=== PATIENT | male | born 1990 | race Caucasian/White ===

== ENCOUNTER 2019-06-05 11:02 | Emergency (ER) | payer OTHER ==
[~2019-06-05] VITALS: Ht 180.3 cm; Wt 72.6 kg
[~2019-06-05 11:02] MED LIST: ATIVAN1 MG PO; BACTRIM DS TAB1 EACH PO; BACTROBAN CREAM30 G1 TOP; COMPAZINE10 M1 PO; COMPAZINE10 MG PO; FLEXERIL PO; IBUPROFEN 600600 M1 PO; IBUPROFEN 800800 MG PO; NOHOMEMEDICATIONS; NORCO 5-325 TA1 EACH PO; PRILOSEC 10MG C10 M1 PO; TYLENOL W/CODEI1 TA2 PO
[2019-06-05 11:26] LABS: ABSOLUTE NEUTROPHILS 5.5 thou/uL (1.4-8.2); BASOPHILS 0.7 % (0.0-2.0); EOSINOPHILS 1.9 % (0.0-3.0); HEMATOCRIT 43.2 % (42.0-52.0); HEMOGLOBIN 14.5 gm/dL (14.0-18.0); LYMPHOCYTES 25.6 % (24.0-44.0); MCH 32.3 pg (26.0-34.0); MCHC 33.6 g/dL (28.0-37.0); MCV 96.1 fL (80.0-100.0); MONOCYTES 5.5 % (1.0-8.0); PLATELET COUNT 257 thou/uL (150-400); POLYS 66.3 % (36.0-66.0); RDW 13.6 % (10.5-14.5); WBC 8.3 thou/uL (4.0-11.0)
[2019-06-05 11:37] LABS: CALCIUM 8.7 mg/dL (8.5-10.1); CREATININE 0.8 mg/dL (0.7-1.3); POTASSIUM 3.8 mmol/L (3.5-5.1)
[2019-06-05 11:42] LABS: ALBUMIN 3.7 g/dL (3.4-5.0); TOTAL BILIRUBIN 0.4 mg/dL (<0.1-1.0); TOTAL PROTEIN 6.7 g/dL (6.4-8.2)
[2019-06-05 12:56] LABS: URINE BILIRUBIN NEGATIVE (Negative); URINE BLOOD NEGATIVE (Negative); URINE CLARITY CLEAR; URINE COLOR YELLOW; URINE GLUCOSE-RANDOM* NEGATIVE (Negative); URINE KETONES NEGATIVE (Negative); URINE LEUKOCYTES-REFLEX NEGATIVE (Negative); URINE NITRITE-REFLEX NEGATIVE (Negative); URINE PROTEIN (DIPSTICK) NEGATIVE (Negative); URINE SPECIFIC GRAVITY <= 1.005 (1.005-1.035); URINE UROBILINOGEN 0.2 E.U./dl (0.2-1.0)
[2019-06-05] MEDS ORDERED: LEVSIN0.125 MG PO (14:26)
[2019-06-05] MEDS ORDERED: PHENERGAN 25 MG25 M1 PO (14:26)
[2019-06-05 14:58] VITALS: BP 110/75
== END 2019-06-05 15:06 | disposition home or self-care (01) ==
LOC: ER 11:02
PROVIDERS: Physician Assistant
DX: R19.7 Diarrhea, unspecified (principal); R11.2 Nausea with vomiting, unspecified; R10.84 Generalized abdominal pain; F17.210 Nicotine dependence, cigarettes, uncomplicated; Z88.0 Allergy status to penicillin

== ENCOUNTER 2021-01-03 15:59 | Emergency (ER) | payer OTHER ==
[~2021-01-03] VITALS: Ht 180.3 cm; Wt 65.8 kg
[~2021-01-03 15:59] MED LIST changes: +LEVSIN0.125 MG PO; +PHENERGAN 25 MG25 M1 PO
[2021-01-03] MEDS ORDERED: VALIUM10 MG PO (17:33)
[2021-01-03] MEDS ORDERED: IBUPROFEN 600600 M1 PO (17:33)
[2021-01-03 17:42] VITALS: BP 134/93
--- NOTE | 2021-01-04 07:22 | EKG ---
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1990 Requested By: Chris Lebron Order Number: [id number] MD: Dragan George Measurements Intervals [place] Rate: 83 P: 66 SD: 137 QRS: 86 QRSD: 101 T: 84 QT: 348 QTc: 409 Interpretive Statements Sinus rhythm Compared to ECG 01/16/2013 19:04:11 Right-axis deviation no longer present Incomplete right bundle-branch block no longer present Electronically Signed On 01-04-2021 7:22:44 CDT by Dragan George [email or web address] <ELECTRONICALLY SIGNED> By: Dragan George MD, [facility] 01/04/21 0722 1626 1626 Dragan George MD, FACC /EPI
== END 2021-01-03 17:42 | disposition home or self-care (01) ==
LOC: ER 15:59
DX: M54.2 Cervicalgia (principal); R55 Syncope and collapse; F17.210 Nicotine dependence, cigarettes, uncomplicated; Z88.0 Allergy status to penicillin

== ENCOUNTER 2021-04-16 14:57 | Emergency (ER) | payer OTHER ==
[~2021-04-16] VITALS: Ht 180.3 cm; Wt 65.8 kg
[~2021-04-16 14:57] MED LIST changes: +VALIUM10 MG PO
[2021-04-16 15:46] LABS: ABSOLUTE NEUTROPHILS 5.8 thou/uL (1.4-8.2); BASOPHILS 0.5 % (0.0-2.0); EOSINOPHILS 0.5 % (0.0-3.0); HEMOGLOBIN 17.8 gm/dL (14.0-18.0); MCH 35.3 pg (26.0-34.0); MONOCYTES 13.1 % (1.0-8.0); POLYS 68.9 % (36.0-66.0); RBC 5.04 mil/uL (4.50-6.00); RDW 15.3 % (10.5-14.5); WBC 8.4 thou/uL (4.0-11.0)
[2021-04-16 16:12] LABS: CALCIUM 9.7 mg/dL (8.5-10.1); POTASSIUM 4.5 mmol/L (3.5-5.1)
[2021-04-16 16:18] LABS: ALBUMIN 3.7 g/dL (3.4-5.0); TOTAL BILIRUBIN 1.4 mg/dL (0.2-1.0); TOTAL PROTEIN 7.5 g/dL (6.4-8.2)
[2021-04-16 16:34] LABS: MACROCYTES 2+; PLATELET COUNT 240 thou/uL (150-400)
[2021-04-16] MEDS ORDERED: PEPCID20 MG PO (20:41)
[2021-04-16] MEDS ORDERED: ZOFRAN ODT4 MG PO (20:42)
[2021-04-16 21:31] VITALS: BP 115/84
--- NOTE | 2021-04-17 10:23 | EKG ---
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
== END 2021-04-16 21:32 | disposition home or self-care (01) ==
LOC: ER 14:57
PROVIDERS: Physician Assistant
DX: R11.2 Nausea with vomiting, unspecified (principal); R10.13 Epigastric pain; F10.20 Alcohol dependence, uncomplicated; F17.210 Nicotine dependence, cigarettes, uncomplicated; F12.90 Cannabis use, unspecified, uncomplicated; Z98.890 Other specified postprocedural states; Z79.899 Other long term (current) drug therapy; Z88.0 Allergy status to penicillin; Z88.1 Allergy status to other antibiotic agents

== ENCOUNTER 2021-04-17 08:29 | Inpatient (IN) | payer OTHER ==
[~2021-04-17] VITALS: Ht 180.3 cm; Wt 65.8 kg
[~2021-04-17 08:29] MED LIST changes: +PEPCID20 MG PO; +ZOFRAN ODT4 MG PO
[2021-04-17 08:32] VITALS: BP 146/102
[2021-04-17 09:08] LABS: ABSOLUTE NEUTROPHILS 7.8 thou/uL (1.4-8.2); BASOPHILS 0.3 % (0.0-2.0); EOSINOPHILS 0.4 % (0.0-3.0); HEMATOCRIT 51.6 % (42.0-52.0); HEMOGLOBIN 17.1 gm/dL (14.0-18.0); LYMPHOCYTES 10.5 % (24.0-44.0); MCH 35.3 pg (26.0-34.0); MCHC 33.1 g/dL (28.0-37.0); MCV 106.6 fL (80.0-100.0); MONOCYTES 7.9 % (1.0-8.0); PLATELET COUNT 218 thou/uL (150-400); POLYS 80.9 % (36.0-66.0); RBC 4.84 mil/uL (4.50-6.00); RDW 15.6 % (10.5-14.5); WBC 9.7 thou/uL (4.0-11.0)
[2021-04-17 09:11] LABS: URINE BLOOD NEGATIVE (Negative); URINE CLARITY CLEAR; URINE GLUCOSE-RANDOM* NEGATIVE (Negative); URINE KETONES 2+ (Negative); URINE LEUKOCYTES-REFLEX NEGATIVE (Negative); URINE PROTEIN (DIPSTICK) NEGATIVE (Negative)
[2021-04-17 09:12] LABS: CALCIUM 9.2 mg/dL (8.5-10.1); CREATININE 0.9 mg/dL (0.7-1.3); POTASSIUM 4.5 mmol/L (3.5-5.1)
[2021-04-17 09:17] LABS: ICTOTEST (BILI CONFIRMATORY) Negative (Negative); URINE BILIRUBIN NEGATIVE (Negative); URINE COLOR DARK YELLOW; URINE NITRITE-REFLEX POSITIVE (Negative)
[2021-04-17 09:21] LABS: ALBUMIN 3.3 g/dL (3.4-5.0); TOTAL BILIRUBIN 1.2 mg/dL (0.2-1.0); TOTAL PROTEIN 6.4 g/dL (6.4-8.2)
[2021-04-17 09:27] LABS: SQUAMOUS 0-3 Few /LPF (0-3)
[2021-04-17 09:28] LABS: BACTERIA-REFLEX 1-9 Few /HPF (None Seen); CALCIUM OXALATE 0-3 Few /LPF (None Seen); CASTS None Seen /LPF (None Seen); URINE RBC None Seen /HPF (NONE SEEN); URINE WBC-REFLEX 6-15 Few /HPF (0-5)
--- NOTE | 2021-04-17 10:29 | EKG ---
[address] [address] ELECTROCARDIOGRAM REPORT Name: PELON LITTLEJOHN [id number] Admission: 04/17/21 Attend Phys: Discharge: Date of : 88 Report #: [id number] 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
[2021-04-18 09:00] VITALS: BP 136/104
[2021-04-18 12:00] VITALS: BP 130/95
[2021-04-18 16:00] VITALS: BP 140/101
--- NOTE | 2021-04-18 17:05 | NUR ---
[id number]-kcm[age]-dkr-male present to the ED on 04/16/21 intractable nausea and vomiting. Per patient with history of alcoholism stated he stopped drinking 2 days prior to ED presentation when severe abdominal pain was felt. The patient was admitted with alcoholic pancreatitis, dehydration, weakness and protein calorie malnutrition. Per ED triage assessment listed as not vaccinated and ID Now shows negative. As of 04/18/21 Lipase noted at 1785, SGOT of 67, SGPT of 85 and Alk Phos of 145. Per the medical record the patient is A&O x4 and reports living with S/O Shena whom is listed to be reached at [phone]. As care needs identified; CM will follow for any potential discharge needs.
[2021-04-18 20:54] VITALS: BP 143/104
[2021-04-19 06:37] LABS: CALCIUM 8.2 mg/dL (8.5-10.1); CREATININE 0.6 mg/dL (0.7-1.3); POTASSIUM 3.3 mmol/L (3.5-5.1); TOTAL BILIRUBIN 0.7 mg/dL (0.2-1.0); TOTAL PROTEIN 4.7 g/dL (6.4-8.2)
[2021-04-19 06:46] LABS: MAGNESIUM 0.8 mg/dL (1.8-2.4)
[2021-04-19 08:14] VITALS: BP 134/94
[2021-04-19 13:22] VITALS: BP 134/95
[2021-04-19 13:27] VITALS: BP 134/95
[2021-04-19 13:59] VITALS: BP 134/95
[2021-04-19 14:30] VITALS: BP 153/114
--- NOTE | 2021-04-19 18:06 | NUR ---
PATIENT ARRIVED ON FLOOR AT APPROXIMATELY 1600 FROM ER. PT STATED HE IS NOT SURE WHY HE WAS ADMITTED TO THE HOSPITAL AND WANTED TO LEAVE AMA. AFTER SOME CONVERSATION PT ADMITTED HE HAS UNCONTROLLED ABDOMINAL PAIN AND NAUSEA. THAT HE KNOWS WILL JUST GET WORSE AFTER HE GOES HOME. PT AGREED TO STAY THE NIGHT AND SPEAK WITH THE PHYSICIANS IN THE AM.
[2021-04-19 19:47] VITALS: BP 160/106
--- NOTE | 2021-04-20 03:18 | NUR ---
Assumed pt care at 1900. Pt is alert and oriented. No sign of distress noted. Pt is ambulatory. Patient verbalizes abdominal pain. Assessment completed and documented. Scheduled meds administered to pt. No acute event during the night. Continue to monitor. No further needs at this time.
[2021-04-20 03:43] VITALS: BP 144/100
[2021-04-20 06:17] LABS: CALCIUM 8.3 mg/dL (8.5-10.1); CREATININE 0.6 mg/dL (0.7-1.3); MAGNESIUM 1.3 mg/dL (1.8-2.4); POTASSIUM 3.4 mmol/L (3.5-5.1)
[2021-04-20 08:10] VITALS: BP 146/99
[2021-04-20 11:53] VITALS: BP 128/98
[2021-04-20] MEDS ORDERED: PEPCID20 MG PO (13:30)
[2021-04-20 13:34] LABS: POTASSIUM 4.2 mmol/L (3.5-5.1)
[2021-04-20 14:22] VITALS: BP 128/98
--- NOTE | 2021-04-20 15:07 | NUR ---
TOOK OVER PATIENT CARE AT 1300. PATIENT RESTING COMFORTABLY IN BED WITH SIGNIFICANT OTHER AT BEDSIDE. PT DENIES ANY PAIN AT THIS TIME AND DENIES ANY NEEDS. DISCHARGE PENDING MAGNESIUM LEVEL AND IF THE PATIENT IS TOLERATING EATING. DISCHARGE EDUCATION GIVEN TO PATIENT; DENIES ANY QUESTIONS AND IS AGREEABLE TO DISCHARGE PLAN. MEDICATION EDUCATION GIVEN TO PATIENT. PT LEFT UNIT WITH NURSING STAFF AND SIGNIFICANT OTHER; LEFT VIA PERSONAL VEHICLE.
== END 2021-04-20 15:55 | disposition home or self-care (01) | DRG 439 ==
LOC: ER 08:29 → EROBS 10:29 → 2N 04-19 14:16
PROVIDERS: Emergency Medicine; Internal Medicine; ADMIT Hospitalist; ATTEND Hospitalist
DX: K85.20 Alcohol induced acute pancreatitis without necrosis or infection (principal); N39.0 Urinary tract infection, site not specified; E86.0 Dehydration; E87.6 Hypokalemia; Z20.822 Contact with and (suspected) exposure to COVID-19
CPT/HCPCS: 10081